=== PATIENT | female | born 1995 | race Caucasian/White ===

== ENCOUNTER 2023-11-13 18:13 | Emergency (ER) | payer SELFPAY ==
[2023-11-13 18:22] VITALS: BP 147/100; PULSE 85; RESP 18; TEMP 98.3; BMI 27.4
[2023-11-13] MEDS ORDERED: ACETAMINOPHEN INJECTION 100 ML IVPB ONE (19:25)
[2023-11-13] MEDS ORDERED: ONDANSETRON 4 MG/2 ML VIAL ONE (19:25)
[2023-11-13] MEDS ORDERED: MAG HYDROX/AL HYDROX/SIMETH 30 ML UNIT-DOSE CUP ONE (19:25)
[2023-11-13 19:29] LABS: BASO % 0.3 % (0-2.0); EOS % 0.2 % (0-4.5); HEMATOCRIT 36.1 % (32.4-45.2); HEMOGLOBIN 12.1 GM/dL (10.7-15.3); LYMPH % 16.2 % (8-40); MCH 26.4 pg (25.7-33.7); MCHC 33.5 g/dl (32.0-36.0); MEAN CELL VOLUME 78.9 fl (80-96); MEAN PLT VOLUME 7.9 fl (7.5-11.1); MONO % 4.9 % (3.8-10.2); NEUT % 78.4 % (42.8-82.8); PLATELET COUNT 324 10^3/uL (134-434); RBC 4.57 M/mm3 (3.60-5.2); RDW 17.6 % (11.6-15.6); WHITE BLOOD COUNT 11.1 K/mm3 (4.0-10.0)
[2023-11-13] MEDS: MAG HYDROX/AL HYDROX/SIMETH 30 ML UNIT-DOSE CUP PO ONE (19:30)
[2023-11-13] MEDS: ACETAMINOPHEN 1000 MG/100 ML BAG IVPB ONE (19:30)
[2023-11-13] MEDS: ONDANSETRON 4 MG/2 ML VIAL IVPUSH ONE (19:30)
[2023-11-13] MEDS ORDERED: FAMOTIDINE 20 MG/50 ML IVPB 20 MG/50 ML MG IVPB ONE (19:35)
[2023-11-13 19:36] LABS: INR 1.12 (0.83-1.09); PROTHROMBIN TIME (PATIENT) 12.8 SEC (9.7-13.0)
[2023-11-13 19:38] LABS: ACTIVATED PTT 39.4 SECONDS (25.2-36.5)
[2023-11-13 19:52] LABS: POTASSIUM 3.5 mmol/L (3.5-5.1)
[2023-11-13 19:55] LABS: ALBUMIN 4.1 g/dl (3.4-5.0); BLOOD UREA NITROGEN 9.5 mg/dL (7-18); CALCIUM 8.9 mg/dL (8.5-10.1); MAGNESIUM 1.7 mg/dL (1.8-2.4)
[2023-11-13 19:58] LABS: CREATININE 0.7 mg/dL (0.55-1.3)
[2023-11-13 19:59] LABS: TOT PROT 7.9 g/dl (6.4-8.2)
[2023-11-13 20:00] LABS: BILIRUBIN,TOTAL 0.6 mg/dL (0.2-1)
[2023-11-13] MEDS: SODIUM CHLORIDE 1,000 ML IV STA (20:08)
[2023-11-13] MEDS: FAMOTIDINE 20 MG/50 ML IVPB 20 MG/50 ML MG IVPB ONE (20:08)
[2023-11-13 21:09] LABS: EPI CELLS >36 /uL (0-25.1); HYALINE CASTS 1 /uL (0-3.1); URINE APPEARANCE CLOUDY; URINE BACTERIA 1463 /uL (0-1359); URINE BILIRUBIN NEGATIVE (NEGATIVE); URINE COLOR YELLOW; URINE GLUCOSE (UA) NEGATIVE (NEGATIVE); URINE KETONE NEGATIVE (NEGATIVE); URINE LEUK ESTERASE NEGATIVE (NEGATIVE); URINE NITRITE NEGATIVE (NEGATIVE); URINE PROTEIN 1+ (NEGATIVE); URINE RBC 608 /uL (0-23.9); URINE WBC 25 /uL (0-25.8)
[2023-11-13] MEDS ORDERED: MAGNESIUM 1GM/D5W - 1 GM/100 ML IVPB IVPB ONE (21:58)
[2023-11-13] MEDS: MAGNESIUM SULF 50% (8.12 MEQ/2 ML-1 GM VIAL) IVPB ONE (22:05)
[2023-11-13] MEDS ORDERED: CEPHALEXIN MONOHYDRATE 500 MG CAPSULE (UD) ONE (22:08)
[2023-11-13] MEDS: MAGNESIUM OXIDE 400 MG TABLET (FP) PO ONE (22:12)
[2023-11-13] MEDS: CEPHALEXIN MONOHYDRATE 500 MG CAPSULE (UD) PO ONE (22:12)
== END 2023-11-13 22:21 | disposition home or self-care (01) ==
LOC: JER 18:13
PROC: 3E033GC Introduction of Other Therapeutic Substance into Peripheral Vein, Percutaneous Approach (ICD-10-PCS; principal; 2023-11-13)
PROC: 3E033GC Introduction of Other Therapeutic Substance into Peripheral Vein, Percutaneous Approach (ICD-10-PCS; 2023-11-13)
PROC: 3E033NZ Introduction of Analgesics, Hypnotics, Sedatives into Peripheral Vein, Percutaneous Approach (ICD-10-PCS; 2023-11-13)
DX: K29.20 Alcoholic gastritis without bleeding (principal); N39.0 Urinary tract infection, site not specified; R11.2 Nausea with vomiting, unspecified; R53.1 Weakness; R30.0 Dysuria; M54.9 Dorsalgia, unspecified; R10.32 Left lower quadrant pain
CPT/HCPCS: 36415; 80053; 81003; 82272; 83605; 83690; 83735; 84703; 85025; 85610; 85730; 86850; 86900; 86901; 87077; 87086; 99284-25; J0131

== ENCOUNTER 2023-11-28 15:59 | Emergency (ER) | payer SELFPAY ==
[2023-11-28 16:11] VITALS: BP 125/84; PULSE 100; RESP 18; TEMP 99; BMI 27.9
[2023-11-28] MEDS ORDERED: ACETAMINOPHEN 500 MG TABLET (FP) ONE (16:52)
[2023-11-28 17:12] LABS: BASO % 0.1 % (0-2.0); EOS % 0.1 % (0-4.5); HEMATOCRIT 37.9 % (32.4-45.2); HEMOGLOBIN 12.6 GM/dL (10.7-15.3); LYMPH % 6.6 % (8-40); MCH 26.2 pg (25.7-33.7); MCHC 33.1 g/dl (32.0-36.0); MEAN PLT VOLUME 7.6 fl (7.5-11.1); NEUT % 89.2 % (42.8-82.8); PLATELET COUNT 315 10^3/uL (134-434); RDW 17.3 % (11.6-15.6); WHITE BLOOD COUNT 17.6 K/mm3 (4.0-10.0)
[2023-11-28 17:27] LABS: EPI CELLS >36 /uL (0-25.1); HYALINE CASTS 159 /uL (0-3.1); PH,URINE 5.5 (5.0-8.0); URINE APPEARANCE CLOUDY; URINE BILIRUBIN 1+ (NEGATIVE); URINE COLOR RED; URINE GLUCOSE (UA) NEGATIVE (NEGATIVE); URINE KETONE 2+ (NEGATIVE); URINE LEUK ESTERASE 2+ (NEGATIVE); URINE NITRITE POSITIVE (NEGATIVE); URINE PROTEIN 3+ (NEGATIVE); URINE WBC 112 /uL (0-25.8)
[2023-11-28 17:36] LABS: POTASSIUM 4.2 mmol/L (3.5-5.1)
[2023-11-28] MEDS ORDERED: KETOROLAC TROMETHAMINE 15 MG/ML VIAL ONE (17:38)
[2023-11-28 17:39] LABS: ALBUMIN 4.1 g/dl (3.4-5.0); BLOOD UREA NITROGEN 8.1 mg/dL (7-18); CALCIUM 8.8 mg/dL (8.5-10.1)
[2023-11-28 17:42] LABS: CREATININE 0.8 mg/dL (0.55-1.3)
[2023-11-28 17:44] LABS: BILIRUBIN,TOTAL 0.8 mg/dL (0.2-1)
[2023-11-28 17:55] LABS: URINE BACTERIA 24.5 /uL (0-1359); URINE RBC 7138.2 /uL (0-23.9); YEAST NONE SEEN (NEGATIVE)
[2023-11-28] MEDS: SODIUM CHLORIDE 0.9% 500 ML INFUS.BAG IV ONE (18:02)
[2023-11-28] MEDS: ACETAMINOPHEN 500 MG TABLET (FP) PO ONE (18:02)
[2023-11-28] MEDS: KETOROLAC TROMETHAMINE 15 MG/ML VIAL IVPUSH ONE (18:03)
[2023-11-28] MEDS ORDERED: AMOX TR/POT CLAV 875MG/125MG TABLETS (FP) ONE (20:00)
[2023-11-28] MEDS ORDERED: CEFTRIAXONE 1 GM/50 ML BAG ONE (20:02)
[2023-11-28] MEDS: CEFTRIAXONE 1,000 MG in DEXTROSE 5%-WATER - 50 ML IVPB ONE (20:09)
[2023-11-28] MEDS: AMOX TR/POT CLAV 875MG/125MG TABLETS (FP) PO ONE (20:09)
== END 2023-11-28 20:35 | disposition home or self-care (01) ==
LOC: JER 15:59
PROC: 3E03329 Introduction of Other Anti-infective into Peripheral Vein, Percutaneous Approach (ICD-10-PCS; principal; 2023-11-28)
PROC: 3E0333Z Introduction of Anti-inflammatory into Peripheral Vein, Percutaneous Approach (ICD-10-PCS; 2023-11-28)
DX: N12 Tubulo-interstitial nephritis, not specified as acute or chronic (principal); J02.0 Streptococcal pharyngitis; M54.9 Dorsalgia, unspecified; N39.0 Urinary tract infection, site not specified; R10.9 Unspecified abdominal pain
CPT/HCPCS: 36415; 74176-TC; 80053; 81003; 84703; 85025; 87086; 87651; 99284-25